=== PATIENT | female | born 1970 | race Asian ===

== ENCOUNTER 2019-05-24 11:25 | Emergency (ER) | payer MEDICAID ==
[~2019-05-24] VITALS: Ht 162.6 cm; Wt 77.1 kg
[2019-05-24 11:25] VITALS: BP_SYST 134
--- NOTE | 2019-05-24 11:25 | NUR ---
Patient triaged and placed in waiting room. VSS and patient appears in no acute distress at this time. Accompanied by MOTHER, awaiting available bed, and MD notified of need for MSE. EKG DONE IN TRIAGE
--- NOTE | 2019-05-24 12:02 | NUR ---
Patient AAO x 4 ambulates to bed 08 with c/o 4/10 chest pain x 2 days. Denies any medical history other than benign chest pain evaluated and treated by a physician x 1 year ago. Even chest rise and fall with respirations. No acute distress noted. Patient is connected to BP cuff, pulse oximetry, and computer language coder. Will continue to monitor condition.
--- NOTE | 2019-05-24 12:12 | NUR ---
ER Dr. Mckoy at bedside examining patient.
[2019-05-24] MEDS: ASPIRIN 81 MG TAB.CHEW PO ONE (12:28)
[2019-05-24 12:43] LABS: BASOPHILS % (AUTO) 0.5 % (0.0-2.0); EOSINOPHILS # (AUTO) 0.3 K/uL (0.0-0.4); EOSINOPHILS % (AUTO) 3.7 % (0.0-4.0); HEMATOCRIT 42.2 % (36-48); LYMPHOCYTES # (AUTO) 1.4 K/uL (1.0-5.5); LYMPHOCYTES % (AUTO) 16.9 % (20.5-51.5); MEAN CORPUSCULAR HEMOGLOBIN 29 pg (27-31); MEAN CORPUSCULAR HGB CONC 33 % (32-36); MEAN CORPUSCULAR VOLUME 87 fL (79.0-98.0); MONOCYTES # (AUTO) 0.6 K/uL (0.0-1.0); MONOCYTES % (AUTO) 7.8 % (1.7-9.3); NEUTROPHILS # (AUTO) 5.9 K/uL (1.8-7.7); NEUTROPHILS % (AUTO) 71.1 % (40.0-70.0); PLATELET COUNT (AUTO) 310 K/uL (130-430); RED BLOOD CELL COUNT(AUTO) 4.86 MIL/uL (4.2-6.2); RED CELL DISTRIBUTION WIDTH 14.8 % (9.0-15.0); WHITE BLOOD COUNT (AUTO) 8.2 K/uL (4.8-10.8)
[2019-05-24 12:56] LABS: CREATININE 0.77 mg/dL (0.55-1.30); POTASSIUM 3.7 mmol/L (3.5-5.1)
[2019-05-24 13:02] LABS: ALBUMIN 3.8 g/dL (3.4-4.8); TOTAL BILIRUBIN 0.3 mg/dL (0.0-1.0)
--- NOTE | 2019-05-24 13:52 | NUR ---
Patient given written and verbal discharge instructions and verbalizes understanding. ER MD discussed with patient the results and treatment provided. Patient in stable condition. ID arm band removed. Rx not given. Patient educated on pain management and to follow up with PMD. Pain Scale 0/10. Opportunity for questions provided and answered. Medication side effect fact sheet provided.
== END 2019-05-24 13:52 | disposition home or self-care (01) ==
LOC: SED 11:25
DX: R07.9 Chest pain, unspecified (principal)
CPT/HCPCS: 36415; 71045; 80053; 83880; 84484; 85025; 93005; 99284